=== PATIENT | female | born 1950 | race African-American/Black ===

== ENCOUNTER 2020-06-11 08:33 | Day surgery (SDC) | payer OTHER, BC ==
[2020-06-09 14:37] VITALS: BMI 30.8
[2020-06-11 09:04] VITALS: TEMP 98.2
[2020-06-11 10:20] VITALS: BP 116/66; PULSE 64
== END 2020-06-11 10:37 | disposition home or self-care (01) ==
LOC: FASU-ENDO 08:33
PROVIDERS: ATTEND Internal Medicine Gastroenterology
PROC: 0DBM8ZX Excision of Descending Colon, Via Natural or Artificial Opening Endoscopic, Diagnostic (ICD-10-PCS; principal; 2020-06-11 09:27)
DX: Z12.11 Encounter for screening for malignant neoplasm of colon (principal); D12.4 Benign neoplasm of descending colon; K64.9 Unspecified hemorrhoids
CPT/HCPCS: 88305-TC